=== PATIENT | female | born 1990 | race African-American/Black ===

== ENCOUNTER 2018-08-23 10:32 | Emergency (ER) | payer OTHER ==
[~2018-08-23] VITALS: Ht 162.6 cm; Wt 70.3 kg
--- NOTE | 2018-08-23 11:03 | NUR ---
ED Nurse Note:urine sent to labs
[2018-08-23 11:09] LABS: APPEARANCE,URINE CLEAR; BILIRUBIN, URINE NEGATIVE (NEGATIVE); COLOR,URINE PALE YELLOW; GLUCOSE, URINE (UA) NEGATIVE (NEGATIVE); KETONES,URINE NEGATIVE (NEGATIVE); LEUKOCYTE ESTERASE ,URINE 1+ (NEGATIVE); NITRITE,URINE NEGATIVE (NEGATIVE); PH,URINE 7 (4.5-8.0); PROTEIN,URINE NEGATIVE (NEGATIVE); UROBILINOGEN,URINE NORMAL MG/DL (0.0-1.0)
[2018-08-23] MEDS ORDERED: IBUPROFEN600 MG ORAL (11:50)
[2018-08-23 12:01] VITALS: BP 117/74
[2018-08-23 12:15] VITALS: BP 120/86
--- NOTE | 2018-08-23 12:16 | NUR ---
ER DISCHARGE NOTE: Patient is cleared to be discharged per ERMD, pt is aox4, on room air, with stable vital signs. pt was given dc and prescription instructions, pt was able to verbalize understanding, pt id band removed. pt is able to ambulate with steady gait. pt took all belongings.
--- NOTE | 2018-08-23 12:19 | Emergency Room Report ---
History of Present Illness General Chief Complaint: Female Urogenital Problems Source: Patient Present Illness HPI Patient presents with complaints of suprapubic discomfort Reports ongoing for the past several days Denies any vaginal discharge denies any foul smell She reported some discomfort with urination Patient reports having one sexual partner and they do use condoms routinely Patient has an intrauterine device in from last year and reports that she does not get menstrual cycles Denies any vomiting or diarrhea denies any fevers or chills discomfort localizes to the suprapubic region midline and bilaterally also some cramping in the lower back Allergies: Coded Allergies: No Known Allergies (Unverified , 08/23/18) Patient History Past Medical History: see triage record Pertinent Family History: none Last Menstrual Period: IUD implant Now: No Reviewed Nursing Documentation: PMH: Agreed; PSxH: Agreed Nursing Documentation-PMH Past Medical History: No Stated History Review of Systems All Other Systems: negative except mentioned in HPI Physical Exam Vital Signs Date Time Temp Pulse Resp B/P (MAP) Pulse Ox O2 Delivery O2 Flow Rate FiO2 08/23/18 10:38 89 18 117/74 98 Room Air 08/23/18 12:15 98.0 Sp02 EP Interpretation: reviewed, normal General Appearance: well appearing, no apparent distress Head: normocephalic, atraumatic Eyes: bilateral eye PERRL, bilateral eye EOMI ENT: hearing grossly normal, normal pharynx Neck: supple Respiratory: lungs clear, no retraction, no accessory muscle use Cardiovascular #1: regular rate, rhythm, no edema Gastrointestinal: non tender - Subjectively points to the suprapubic region, soft Genitourinary: no CVA tenderness Musculoskeletal: normal inspection Neurologic: alert, oriented x3, responsive Skin: normal color, no rash Lymphatic: no adenopathy Medical Decision Making Diagnostic Impression: Primary Impression: dysuria ER Course With the patient's history and examination, multiple differentials considered, including but not limited to , ectopic , ovarian torsion, gastritis, cholecystitis, pancreatitis, appendicitis Patient's urine is negative The urine sample does not show obvious infectious pathology Other differentials such as ovarian torsion, PID considered patient however is afebrile denies any discharge or foul smell Reports one sexual partner with barrier usage Differentials such as ovarian cyst uterine fibroid also further entertained Patient otherwise does not meet criteria for emergent imaging Patient appears comfortable in the room also and waiting in the emergency room And appears stable for close urgent outpatient follow-up, Labs Test 08/23/18 11:00 Urine Color Pale yellow Urine Appearance Clear Urine pH 7 (4.5-8.0) Urine Specific [place] 1.010 (1.005-1.035) Urine Protein Negative (NEGATIVE) Urine Glucose (UA) Negative (NEGATIVE) Urine Ketones Negative (NEGATIVE) Urine Blood 1+ (NEGATIVE) Urine Nitrite Negative (NEGATIVE) Urine Bilirubin Negative (NEGATIVE) Urine Urobilinogen Normal MG/DL (0.0-1.0) Urine Leukocyte Esterase 1+ (NEGATIVE) Urine RBC 0-2 /HPF (0 - 2) Urine WBC 2-4 /HPF (0 - 2) Urine Squamous Epithelial Cells Moderate /LPF (NONE/OCC) Urine Bacteria Few /HPF (NONE) Urine HCG, Qualitative Negative (NEGATIVE) Last Vital Signs Date Time Temp Pulse Resp B/P (MAP) Pulse Ox O2 Delivery O2 Flow Rate FiO2 08/23/18 12:15 98.0 84 20 120/86 100 Room Air Status: improved Disposition: HOME, SELF-CARE Condition: Stable Scripts Ibuprofen* (MOTRIN*) 600 Mg Tablet 600 MG ORAL Q8H PRN for For Pain, #20 TAB 0 Refills Prov: Jeannine Agosto DO 08/23/18 Referrals: NIVIA ADAME,REFERRING (PCP) Alina Puri [facility] Patient Instructions: Dysuria Additional Instructions: Patient is provided with the discharge instructions notified to follow up with primary doctor in the next 2-3 days otherwise return to the er with any worsening symptoms. Please note that this report is being documented using [employer] technology. This can lead to erroneous entry secondary to incorrect interpretation by the dictating instrument. Jaennine Agosto DO Aug 23, 2018 12:19
== END 2018-08-23 12:16 | disposition home or self-care (01) ==
LOC: EDBD 10:32 → EMR 11:09
DX: R30.0 Dysuria (principal); R10.9 Unspecified abdominal pain
CPT/HCPCS: 81003; 81025; 99283